=== PATIENT | male | born 1980 | race Caucasian/White ===

== ENCOUNTER 2018-05-29 10:08 | Outpatient (CLI) | payer BC ==
[2018-05-29 11:27] LABS: Bilirubin Negative (Negative); Blood, Urine Negative (Negative); Clarity CLEAR (Clear); Glucose, Urine (Dipstick) Negative (Negative); Hemoglobin A1c 5.2 % (4.0-6.0); Leukocyte Small (Negative); Nitrite Negative (Negative); Protein, Urine (Dipstick) Negative (Neg-Trace); Specific Gravity, Urine 1.028 (1.002-1.036); Urobilinogen 0.2 mg/dL (0.2-1.0)
[2018-05-29 11:38] LABS: Bacteria/HPF None Seen HPF (None Seen); Hyaline Casts/LPF 0-3 HYALINE CAST LPF (0-3 Hyaline); RBC/HPF 0-3 HPF (0-3); Squamous Epithelial None Seen HPF (0-3); WBC/HPF None Seen HPF (0-3)
== END 2018-05-29 10:09 | disposition home or self-care (01) ==
LOC: LABBT 10:08
PROVIDERS: ATTEND Surgery
DX: Z01.812 Encounter for preprocedural laboratory examination (principal); K57.32 Diverticulitis of large intestine without perforation or abscess without bleeding
CPT/HCPCS: 81001; 83036

== ENCOUNTER 2020-09-30 07:52 | Outpatient (CLI) | payer OTHER ==
[2020-09-30] MEDS ORDERED: Magnevist 469MG/ML 20 ML VIAL ONE (13:11)
== END 2020-09-30 07:53 | disposition home or self-care (01) ==
LOC: MRI 07:52
PROVIDERS: ATTEND Internal Medicine Endocrinology, Diabetes & Metabolism
DX: E22.1 Hyperprolactinemia (principal); E23.6 Other disorders of pituitary gland
CPT/HCPCS: 70553; A9579

== ENCOUNTER 2021-07-27 09:51 | Outpatient (CLI) | payer OTHER | END 2021-07-27 09:52 | disposition home or self-care (01) | LOC: RAD 09:51 | PROVIDERS: ATTEND Specialist | DX: K57.30 Diverticulosis of large intestine without perforation or abscess without bleeding (principal) | CPT/HCPCS: 74280 ==

== ENCOUNTER 2021-08-05 09:45 | Inpatient (IN) | payer OTHER ==
[2021-08-05 11:03] VITALS: BMI 34.9
[2021-08-10] MEDS ORDERED: Ketorolac Tromethamine 30 MG/ML VIAL ONE ×2 (06:36→07:42)
[2021-08-10] MEDS ORDERED: Acetaminophen 500 MG TAB ONE (06:36)
[2021-08-10] MEDS ORDERED: Xylocaine 1% w/ Epi 1:100K 10 ML VIAL ONE (06:45)
[2021-08-10] MEDS ORDERED: Midazolam HCl 2 mg/2 ml Vial ONE ×2 (06:52→07:07)
[2021-08-10] MEDS ORDERED: Fentanyl 250 MCG/5 ML VIAL ONE ×4 (06:53→13:44)
[2021-08-10] MEDS ORDERED: Bupivacaine 0.25% HCL 30 ML VIAL ONE (07:03)
[2021-08-10] MEDS ORDERED: Bupivacaine HCl 0.5%/Epinephrine 1:200,000/PF 30 ml Vial ONE (07:05)
[2021-08-10] MEDS ORDERED: Sodium Chloride 0.9% 100 ML ONE (07:31)
[2021-08-10] MEDS ORDERED: cefOXitin 2 GM VIAL ONE (07:31)
[2021-08-10] MEDS ORDERED: Ondansetron PF 4 MG/2 ML Vial ONE (07:42)
[2021-08-10] MEDS ORDERED: Dexamethasone 20 MG/5 ML VIAL ONE (07:42)
[2021-08-10] MEDS ORDERED: Lidocaine 1% PF 5 ML VIAL ONE (07:42)
[2021-08-10] MEDS ORDERED: PROPOFOL 200 MG/20 ML VIAL ONE (07:42)
[2021-08-10] MEDS ORDERED: Rocuronium Bromide 10 MG/ML (10ML VIAL) ONE (07:42)
[2021-08-10] MEDS ORDERED: HYDROmorphone 2 MG/ML VIAL SLOW IVP PRN (09:31)
[2021-08-10] MEDS ORDERED: Promethazine HCl 25 MG/ML VIAL IVPB PRN (09:31)
[2021-08-10] MEDS ORDERED: Ondansetron HCl/PF 4 MG/2 ML Vial IVP PRN (09:31)
[2021-08-10] MEDS ORDERED: Promethazine HCl 25 MG/ML VIAL IM PRN ×2 (09:31→10:55)
[2021-08-10] MEDS ORDERED: cefOXitin Sodium/Dextrose 2 GM/50 ML BAG ONE (09:36)
[2021-08-10] MEDS ORDERED: SUGAMMADEX SODIUM 200 MG/2 ML VIAL ONE (10:01)
[2021-08-10] MEDS ORDERED: hydrALAZINE 20 MG/ML VIAL SLOW IVP PRN (10:55)
[2021-08-10] MEDS ORDERED: Ondansetron PF 4 MG/2 ML Vial IVP PRN (10:55)
[2021-08-10] MEDS ORDERED: Morphine 4 MG/ML VIAL SLOW IVP PRN (11:05)
[2021-08-10] MEDS: D5 1/2 NS w/20 mEq KCL 1,000 ML IV SCH (16:41)
[2021-08-10] MEDS: Ketorolac Tromethamine 30 MG/ML VIAL IVP SCH ×2 (16:41→17:37)
[2021-08-10] MEDS: Morphine 4 MG/ML VIAL SLOW IVP PRN (19:56)
[2021-08-10] MEDS: Famotidine/PF 20 mg/2ml Vial SLOW IVP SCH (19:57)
[2021-08-10] MEDS: Famotidine 20 MG TAB PO SCH (19:58)
[2021-08-10] MEDS: HYDROcodone/Acetaminophen 7.5/325 mg Tablet PO PRN (20:55)
[2021-08-10] MEDS ORDERED: Enoxaparin Sodium 40 MG/0.4 ML SYRINGE SC SCH (21:00)
[2021-08-11] MEDS: D5 1/2 NS w/20 mEq KCL 1,000 ML IV SCH ×4 (01:02→14:39)
[2021-08-11] MEDS: Ketorolac Tromethamine 30 MG/ML VIAL IVP SCH ×4 (01:03→17:41)
[2021-08-11] MEDS: Morphine 4 MG/ML VIAL SLOW IVP PRN (05:34)
[2021-08-11 05:37] LABS: #Lymphocytes 1.2 thou/uL (1.20-3.40); #Monocytes 1.1 thou/uL (0.11-0.59); #Neutrophils 8.9 thou/uL (1.40-6.50); %Basophils 0.1 % (0.0-1.0); %Eosinophils 0.1 % (0.0-10.0); %Lymphocytes 10.5 % (21.0-51.0); %Monocytes 9.8 % (0.0-10.0); %Neutrophils 79.5 % (42.0-75.0); Hemoglobin 13.5 g/dL (14.0-18.0); Mean Corpuscular HGB CONC 34.5 g/dL (32.0-36.0); Mean Corpuscular Hemoglobin 33.9 pg (27.0-31.0); Mean Corpuscular Volume 98.4 fL (78.0-98.0); Mean Platelet Volume 7.7 fL (7.4-10.4); Platelet Count 202 thou/uL (130-400); Red Blood Cell (RBC) Count 3.98 mill/uL (4.70-6.10); White Blood Cell (WBC) Count 11.3 thou/uL (4.8-10.8)
[2021-08-11 05:57] LABS: Anion Gap 10 mmol/L (10-20); BUN (Urea Nitrogen) 11 mg/dL (8.9-20.6); Calc. Creatinine Clearance 234 mL/min (70-130); Calcium 8.9 mg/dL (7.8-10.44); Carbon Dioxide 24 mmol/L (22-29); Chloride 108 mmol/L (98-107); Glucose 126 mg/dL (70-105); Sodium 138 mmol/L (136-145)
[2021-08-11] MEDS: Famotidine 20 MG TAB PO SCH ×2 (08:30→19:47)
[2021-08-11] MEDS: HYDROcodone/Acetaminophen 7.5/325 mg Tablet PO PRN ×2 (08:31→15:30)
[2021-08-11] MEDS: Famotidine/PF 20 mg/2ml Vial SLOW IVP SCH ×2 (08:31→19:47)
[2021-08-11] MEDS ORDERED: HYDROcodone/Acetaminophen 7.5/325 mg Tablet PO PRN (10:26)
[2021-08-12] MEDS: Ketorolac Tromethamine 30 MG/ML VIAL IVP SCH ×3 (00:11→11:02)
[2021-08-12] MEDS: HYDROcodone/Acetaminophen 7.5/325 mg Tablet PO PRN ×2 (00:11→08:04)
[2021-08-12 05:18] LABS: #Eosinphils 0.1 thou/uL (0.0-0.7); #Lymphocytes 3.4 thou/uL (1.20-3.40); #Neutrophils 5.1 thou/uL (1.40-6.50); %Basophils 0.3 % (0.0-1.0); %Eosinophils 0.7 % (0.0-10.0); %Lymphocytes 34.9 % (21.0-51.0); %Monocytes 10.7 % (0.0-10.0); %Neutrophils 53.4 % (42.0-75.0); Hemoglobin 11.4 g/dL (14.0-18.0); Mean Corpuscular HGB CONC 34.7 g/dL (32.0-36.0); Mean Corpuscular Hemoglobin 34.3 pg (27.0-31.0); Mean Corpuscular Volume 98.7 fL (78.0-98.0); Mean Platelet Volume 7.4 fL (7.4-10.4); Platelet Count 154 thou/uL (130-400); RBC Distribution Width 11.9 % (11.5-14.5); Red Blood Cell (RBC) Count 3.31 mill/uL (4.70-6.10); White Blood Cell (WBC) Count 9.6 thou/uL (4.8-10.8)
[2021-08-12] MEDS: Famotidine 20 MG TAB PO SCH (08:05)
[2021-08-12] MEDS: Famotidine/PF 20 mg/2ml Vial SLOW IVP SCH (08:05)
[2021-08-12] MEDS: D5 1/2 NS w/20 mEq KCL 1,000 ML IV SCH (08:45)
[2021-08-12 08:53] VITALS: BP 114/70; TEMP 97.6
== END 2021-08-12 11:25 | disposition home or self-care (01) | DRG 330 ==
LOC: SURG A 08-10 05:44
PROVIDERS: ADMIT Specialist; ATTEND Specialist
PROC: 0DBN4ZZ Excision of Sigmoid Colon, Percutaneous Endoscopic Approach (ICD-10-PCS; principal; 2021-08-10)
DX: K57.32 Diverticulitis of large intestine without perforation or abscess without bleeding (principal); Q43.8 Other specified congenital malformations of intestine; Z20.822 Contact with and (suspected) exposure to COVID-19; E66.9 Obesity, unspecified; D75.89 Other specified diseases of blood and blood-forming organs; D72.0 Genetic anomalies of leukocytes; D64.9 Anemia, unspecified; D72.829 Elevated white blood cell count, unspecified; K57.90 Diverticulosis of intestine, part unspecified, without perforation or abscess without bleeding; Z68.35 Body mass index [BMI] 35.0-35.9, adult; Z79.899 Other long term (current) drug therapy; Z79.51 Long term (current) use of inhaled steroids
CPT/HCPCS: 36415; 36416; 80048; 85025; 88307; A4649; C1889; J0694; J1100; J1650; J1885; J2250; J2270; J2405; J2704; J3010; J3480; J3490; S0020; S0028

== ENCOUNTER 2021-08-05 09:48 | Outpatient (CLI) | payer OTHER ==
[2021-08-05 11:24] LABS: #Basophils 0.1 10x3/uL (0.0-0.2); #Eosinphils 0.2 10x3/uL (0.0-0.5); #Monocytes 0.6 10x3/uL (0.0-1.1); #Neutrophils 2.8 10x3/uL (1.5-8.4); %Basophils 0.9 % (0.0-2.0); %Eosinophils 3.5 % (0.0-6.0); %Lymphocytes 33.8 % (18.0-47.0); %Monocytes 10.1 % (0.0-10.0); %Neutrophils 51.5 % (40.0-75.0); Hemoglobin 14.1 g/dL (13.5-17.5); Mean Corpuscular HGB CONC 33.7 g/dL (32.0-36.0); Mean Corpuscular Hemoglobin 31.8 pg (27.0-33.0); Mean Corpuscular Volume 94.4 fl (81.2-95.1); Mean Platelet Volume 11.3 fl (7.4-10.4); Platelet Count 194 10x3/uL (150-450); RBC Distribution Width 12.5 % (11.5-14.5); Red Blood Cell (RBC) Count 4.43 10x6/uL (4.32-5.72); White Blood Cell (WBC) Count 5.4 10x3/uL (3.5-10.5)
[2021-08-05 12:20] LABS: Anion Gap 13 mmol/L (10-20); BUN (Urea Nitrogen) 16 mg/dL (8.9-20.6); Calc. Creatinine Clearance 0 mL/min (70-130); Calcium 9.4 mg/dL (7.8-10.44); Carbon Dioxide 25 mmol/L (22-29); Chloride 106 mmol/L (98-107); Glucose 96 mg/dL (70-105); Potassium 4.3 mmol/L (3.5-5.1); Sodium 140 mmol/L (136-145)
[2021-08-05 14:16] LABS: Hemoglobin A1c 4.5 % (4.0-6.0)
[2021-08-05 23:07] LABS: SARS-CoV-2 PCR by NAA Not Detected (NotDetected)
== END 2021-08-05 09:49 | disposition home or self-care (01) ==
LOC: LABBT 09:48
PROVIDERS: ATTEND Specialist
DX: Z01.812 Encounter for preprocedural laboratory examination (principal); K57.90 Diverticulosis of intestine, part unspecified, without perforation or abscess without bleeding; Z20.822 Contact with and (suspected) exposure to COVID-19
CPT/HCPCS: 80048; 83036; 85025; U0003; U0005

== ENCOUNTER 2022-02-22 12:40 | Outpatient (CLI) | payer OTHER ==
[2022-02-22] MEDS ORDERED: Magnevist 469MG/ML 20 ML VIAL ONE (13:22)
== END 2022-02-22 12:41 | disposition home or self-care (01) ==
LOC: MRI 12:40
PROVIDERS: ATTEND Internal Medicine Endocrinology, Diabetes & Metabolism
DX: D35.2 Benign neoplasm of pituitary gland (principal)
CPT/HCPCS: 70553; A9579

== ENCOUNTER 2022-12-22 11:42 | Outpatient (CLI) | payer OTHER ==
[2022-12-22 12:48] LABS: #Basophils 0.1 10x3/uL (0.0-0.2); #Eosinphils 0.3 10x3/uL (0.0-0.5); #Monocytes 0.6 10x3/uL (0.0-1.1); #Neutrophils 2.3 10x3/uL (1.5-8.4); %Basophils 1.3 % (0.0-2.0); %Lymphocytes 45.5 % (18.0-47.0); %Monocytes 9.8 % (0.0-10.0); %Neutrophils 38.1 % (40.0-75.0); Mean Corpuscular HGB CONC 34.8 g/dL (32.0-36.0); Mean Corpuscular Hemoglobin 32.1 pg (27.0-33.0); Mean Corpuscular Volume 92.3 fl (81.2-95.1); Mean Platelet Volume 10.2 fl (7.4-10.4); Platelet Count 221 10x3/uL (150-450); RBC Distribution Width 12.2 % (11.5-14.5); Red Blood Cell (RBC) Count 4.67 10x6/uL (4.32-5.72); White Blood Cell (WBC) Count 6.2 10x3/uL (3.5-10.5)
[2022-12-22 13:38] LABS: Anion Gap 12 mmol/L (10-20); BUN (Urea Nitrogen) 16 mg/dL (8.9-20.6); Calc. Creatinine Clearance 0 mL/min (70-130); Calcium 9.5 mg/dL (7.8-10.44); Carbon Dioxide 25 mmol/L (22-29); Chloride 106 mmol/L (98-107); Estimated GFR 108; Glucose 92 mg/dL (70-105); Potassium 4.2 mmol/L (3.5-5.1); Sodium 139 mmol/L (136-145)
== END 2022-12-22 11:43 | disposition home or self-care (01) ==
LOC: LABBT 11:42
PROVIDERS: ATTEND Specialist
DX: Z01.812 Encounter for preprocedural laboratory examination (principal); K40.90 Unilateral inguinal hernia, without obstruction or gangrene, not specified as recurrent
CPT/HCPCS: 80048; 85025

== ENCOUNTER 2022-12-27 07:19 | Day surgery (SDC) | payer OTHER ==
[2022-12-22 12:35] VITALS: BMI 37.8
[2022-12-27] MEDS ORDERED: Ketorolac Tromethamine 30 MG/ML VIAL ONE (07:54)
[2022-12-27] MEDS ORDERED: Bupivacaine HCl 0.5%/Epinephrine 1:200,000/PF 30 ml Vial ONE (08:35)
[2022-12-27] MEDS ORDERED: fentaNYL PF 100 MCG/2 ML SYRINGE ONE (08:37)
[2022-12-27] MEDS ORDERED: Magnesium 5 GM/10 ML VIAL ONE (08:37)
[2022-12-27] MEDS ORDERED: Sodium Chloride 0.9% 100 ML ONE (08:49)
[2022-12-27] MEDS ORDERED: CEFAZOLIN 2 GM VIAL ONE (08:49)
[2022-12-27] MEDS ORDERED: PHENYLEPHRINE-NS 100 MCG/ML 10 ML SYRINGE ONE (09:00)
[2022-12-27] MEDS ORDERED: Glycopyrrolate 0.2 MG/ML 5 ML SYRINGE ONE (09:00)
[2022-12-27] MEDS ORDERED: Dexamethasone 20 MG/5 ML VIAL ONE (09:00)
[2022-12-27] MEDS ORDERED: Atropine Sulfate 0.4 mg/1 ml Vial ONE (09:00)
[2022-12-27] MEDS ORDERED: Rocuronium Bromide 10 MG/ML (10ML VIAL) ONE (09:00)
[2022-12-27] MEDS ORDERED: Lidocaine 1% PF 5 ML VIAL ONE (09:00)
[2022-12-27] MEDS ORDERED: PROPOFOL 200 MG/20 ML VIAL ONE (09:00)
[2022-12-27] MEDS ORDERED: Ondansetron PF 4 MG/2 ML Vial ONE (09:00)
[2022-12-27] MEDS ORDERED: SUGAMMADEX SODIUM 200 MG/2 ML VIAL ONE ×2 (09:41→10:42)
[2022-12-27] MEDS ORDERED: fentaNYL 50 mcg/mL 1 mL Vial ONE ×2 (11:26→11:58)
[2022-12-27] MEDS ORDERED: HYDROcodone/Acetaminophen 5/325 mg Tablet ONE (12:37)
== END 2022-12-27 13:25 | disposition home or self-care (01) ==
LOC: SDC 07:19
PROVIDERS: ATTEND Specialist
PROC: 0YU647Z Supplement Left Inguinal Region with Autologous Tissue Substitute, Percutaneous Endoscopic Approach (ICD-10-PCS; principal; 2022-12-27)
DX: K40.90 Unilateral inguinal hernia, without obstruction or gangrene, not specified as recurrent (principal); D17.6 Benign lipomatous neoplasm of spermatic cord; Z88.0 Allergy status to penicillin; K57.92 Diverticulitis of intestine, part unspecified, without perforation or abscess without bleeding; Z79.899 Other long term (current) drug therapy
CPT/HCPCS: C1781; J0461; J1100; J1885; J2405; J2704; J3010; J3475; J3490